=== PATIENT | female | born 1940 | race Caucasian/White ===

== ENCOUNTER 2022-12-25 13:57 | Outpatient (CLI) | payer MEDICARE, SELFPAY ==
--- NOTE | ~2022-12-25 | CT_ITS ---
EXAMINATION: CT lumbar spine wo con DATE: 12/25/2022 14:16 INDICATION: Lumbar radiculopathy. Low back pain. Right leg pain. TECHNIQUE: Computed tomography (CT) of the lumbar spine was performed without intravenous contrast. A utomated exposure control and iterative reconstruction technique were employed. The dose-length produ ct was 253.11 mGy-cm. COMPARISON: None FINDINGS: There is levoscoliosis of lumbar spine. There is a chronic compression fracture of L1 with 2/5 loss of height. There is moderately decreased disc height at L3-L4, mildly decreased disc height at L4-L5, and severely decreased disc height at L5-S1. The following disc levels are specifically dis cussed: L1-L2: The disc is bulging. There is mild right and moderate left facet joint osteoarthritis. There i s mild bilateral neural foraminal stenosis. There is no central canal stenosis. L2-L3: The disc is bulging. There is mild right and moderate left facet joint osteoarthritis. There i s mild bilateral neural foraminal stenosis. There is no central canal stenosis. L3-L4: The disc is bulging. There is severe bilateral facet joint osteoarthritis. There is moderate r ight and mild left neural foraminal stenosis. There is mild central canal stenosis. L4-L5: The disc is bulging. There is severe bilateral facet joint osteoarthritis. There is moderate b ilateral neural foraminal stenosis. There is moderate central canal stenosis. L5-S1: The disc is bulging. There is severe bilateral facet joint osteoarthritis. There is mild bilat eral neural foraminal stenosis. There is mild central canal stenosis. IMPRESSION: 1. Severe lumbar spondylosis. 2. Lumbar levoscoliosis. Reviewed, dictated and finalized at location E.
== END 2022-12-25 13:58 ==
LOC: MICIMG 13:58
PROVIDERS: PCP Internal Medicine; Visit Provider Nurse Practitioner Family
DX: M47.26 Other spondylosis with radiculopathy, lumbar region (principal)
CPT/HCPCS: 72131

== ENCOUNTER 2023-08-03 13:38 | Outpatient (CLI) | payer MEDICARE, SELFPAY ==
--- NOTE | ~2023-08-03 | CT_ITS ---
EXAMINATION: CT soft tissue neck w con DATE: 08/03/2023 14:22 INDICATION: Lymphadenopathy. TECHNIQUE: Computed tomography (CT) of the neck was performed with 75 mL Omnipaque-350 intravenous co ntrast. Automated exposure control and iterative reconstruction technique were employed. The dose-lilia gth product was 331.93 mGy-cm. COMPARISON: None FINDINGS: A calcified right lung nodule is consistent with old granulomatous disease. There is periph eral septal thickening in the visualized portions of the lung apices. There are likely changes of ocu lar lens replacement surgeries. There is a 2.2 cm mass in the oropharynx on the left. There is necrot ic left high, mid, and low internal jugular chain lymphadenopathy. For example, a high left internal jugular chain node measures 2.3 x 1.6 cm. There is mass effect on left internal jugular vein. There i s plaque in the proximal internal carotid arteries with less than 50% stenosis relative to normal dis oliverio artery lumen diameters. A left chest pacer is noted. There is mild mucosal thickening in the para nasal sinuses. The mastoid air cells are normal. There is a cerumen in left external auditory canal. There is severe cervical spondylosis. IMPRESSION: 1. 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 2. Left internal jugular chain lymphadenopathy, consistent with metastatic disease. Ultrasound-guided core biopsy is recommended. Reviewed, dictated and finalized at location A. IMPRESSION: 1. 2.2 cm mass in the oropharynx on the left, consistent with squamous cell car cinoma. 2. Left internal jugular chain lymphadenopathy, consistent with metastatic dise ase. Ultrasound-guided core biopsy is recommended.
[2023-08-03 14:01] LABS: Estimated Glomerular Filt Rate 47
== END 2023-08-03 13:39 ==
LOC: MICIMG 13:39
PROVIDERS: PCP Internal Medicine; Visit Provider Internal Medicine
DX: R59.1 Generalized enlarged lymph nodes (principal)
CPT/HCPCS: 70491; Q9967